=== PATIENT | female | born 1980 | race Caucasian/White ===

== ENCOUNTER 2019-02-02 19:24 | Emergency (ER) | payer OTHER ==
[~2019-02-02] VITALS: Ht 160 cm; Wt 50.8 kg
--- OUTSIDE RECORDS SUMMARY | 2019-02-02 19:27 | XMS REPORT ---
Author Author [facility] Address Unknown Phone Unavailable Care Team Providers Care Java Programmer Name Role Phone Unavailable Unavailable Payers Payer Name Policy Type Policy Number Effective Date Expiration Date Problems This patient has no known problems. Allergies, Adverse Reactions, Alerts Allergy Name Allergy Type Status Severity Reaction(s) Onset Date Inactive Date Treating Clinician Comments No Known Allergies DA Active U 2018-05-24 00:00:00 No Known Allergies DA Active U 2015-03-17 00:00:00 Medications This patient has no known medications. Results Test Description Test Time Test Comments Text Results Atomic Results Result Comments - CT HEAD/BRAIN W/O CONT 2018-05-24 14:05:00 Name: CARMINE CHOWDHURY [facility] : 1980 Age/S: 37 / F [address] [facility] Unit #: [id number] Loc: [place] [address] Phys: Agustin Garza MD Acct: [id number] Dis Date: Status: REG ER PHONE #: [phone] Exam Date: 05/24/2018 1348 FAX #: [phone] Reason: Headache EXAMS: CPT CODE: [id number] CT HEAD/BRAIN W/O CONT 38258 HISTORY: Headaches. COMPARISON: None available. CT brain without contrast: Automated exposure control. No acute intracranial bleeds or extra-axial collections and there is no acute territorial vascular infarction. The das-white matter differentiation is preserved. The sulci, gyri, ventricles and subarachnoid spaces and the basilar cisterns are normal for patient's age. No herniation or hydrocephalus or midline shift is noted. Fourth ventricle remains midline. Portions of the visualized paranasal sinuses demonstrated left maxillary polyp or retention cyst with mucosal thickening on the right side. No obvious bony calvarial defect is noted. IMPRESSION: No acute intracranial bleeds or extra-axial collections. No acute territorial vascular infarction. No herniation or hydrocephalus or midline shift. at 1405 Reported and signed by: Kenney Dalal M.D. CC: Agustin Garza MD Technologist:Librado Velarde RT(R),(MR),(CT) CTDI: DLP: Trnscb Date/Time: 05/24/2018 (2477) [email or web address] Orig Print D/T: S: 05/24/2018 (0249) CTDI: DLP: PAGE 1 Signed Report BASIC METABOLIC PANEL 2018-05-24 14:00:00 SODIUM (test code=NA) 139 mmol/L 136-145 POTASSIUM (test code=K) 3.8 mmol/L 3.5-5.1 CHLORIDE (test code=CL) 105.0 mmol/L 98-107 CARBON DIOXIDE (test code=CO2) 29.0 mmol/L 21-32 ANION GAP (test code=GAP) 8.8 10-20 GLUCOSE (test code=GLU) 98 mg/dL 74-106 BLOOD UREA NITROGEN (test code=BUN) 11 mg/dL 7-18 GLOMERULAR FILTRATION RATE (test code=GFR) > 60 mL/min >=60 Estimated GFR by using Modified MDRD formula.Chronic kidney disease is defined as either kidney damageor GFR <60 mL/min/1.73 m2 for >3 months. CREATININE (test code=CREAT) 0.60 mg/dL 0.55-1.02 Note change in reference range due to change in reagent. BUN/CREATININE RATIO (test code=BUN/CREA) 17.6 10-20 CALCIUM (test code=CA) 8.6 mg/dL 8.5-10.1 HCG SERUM [id number] 14:00:00* Test Item Value Reference Range Comments HCG SERUM QUAL (test code=HCGQL) NEGATIVE NEGATIVE This HCGQL test is NOT applicable for MALE patients.Check with nurse about probable order error.If Tumor Marker Test needed, nurse should order test "HCGTU"(Test #550.08753) BASIC METABOLIC [id number] 13:57:00* Test Item Value Reference Range Comments SODIUM (test code=NA) 139 mmol/L 136-145 POTASSIUM (test code=K) 3.8 mmol/L 3.5-5.1 CHLORIDE (test code=CL) 105.0 mmol/L 98-107 CARBON DIOXIDE (test code=CO2) mmol/L 21-32 ANION GAP (test code=GAP) 10-20 GLUCOSE (test code=GLU) mg/dL 74-106 BLOOD UREA NITROGEN (test code=BUN) mg/dL 7-18 GLOMERULAR FILTRATION RATE (test code=GFR) mL/min >=60 CREATININE (test code=CREAT) mg/dL 0.55-1.02 BUN/CREATININE RATIO (test code=BUN/CREA) 10-20 CALCIUM (test code=CA) 8.6 mg/dL 8.5-10.1 HCG SERUM [id number] 13:57:00* Test Item Value Reference Range Comments [facility] [place] (test code=HCGQL) NEGATIVE BASIC METABOLIC [id number] 13:57:00* Test Item Value Reference Range Comments SODIUM (test code=NA) 139 mmol/L 136-145 POTASSIUM (test code=K) 3.8 mmol/L 3.5-5.1 CHLORIDE (test code=CL) 105.0 mmol/L 98-107 CARBON DIOXIDE (test code=CO2) mmol/L 21-32 ANION GAP (test code=GAP) 10-20 GLUCOSE (test code=GLU) mg/dL 74-106 BLOOD UREA NITROGEN (test code=BUN) mg/dL 7-18 GLOMERULAR FILTRATION RATE (test code=GFR) mL/min >=60 CREATININE (test code=CREAT) mg/dL 0.55-1.02 BUN/CREATININE RATIO (test code=BUN/CREA) 10-20 CALCIUM (test code=CA) 8.6 mg/dL 8.5-10.1 HCG SERUM [id number] 13:57:00* Test Item Value Reference Range Comments HCG SERUM QUAL (test code=HCGQL) NEGATIVE NEGATIVE This HCGQL test is NOT applicable for MALE patients.Check with nurse about probable order error.If Tumor Marker Test needed, nurse should order test "HCGTU"(Test #550.52974) BASIC METABOLIC [id number] 13:56:00* Test Item Value Reference Range Comments SODIUM (test code=NA) 139 mmol/L 136-145 POTASSIUM (test code=K) 3.8 mmol/L 3.5-5.1 CHLORIDE (test code=CL) 105.0 mmol/L 98-107 CARBON DIOXIDE (test code=CO2) mmol/L 21-32 ANION GAP (test code=GAP) 10-20 GLUCOSE (test code=GLU) mg/dL 74-106 BLOOD UREA NITROGEN (test code=BUN) mg/dL 7-18 GLOMERULAR FILTRATION RATE (test code=GFR) mL/min >=60 CREATININE (test code=CREAT) mg/dL 0.55-1.02 BUN/CREATININE RATIO (test code=BUN/CREA) 10-20 CALCIUM (test code=CA) mg/dL 8.5-10.1 HCG SERUM [id number] 13:56:00* Test Item Value Reference Range Comments HCG SERUM QUAL (test code=HCGQL) NEGATIVE CBC W/AUTO [id number] 13:55:00* Test Item Value Reference Range Comments WHITE BLOOD CELL (test code=WBC) 7.4 K/mm3 4.5-12.5 RED BLOOD CELL (test code=RBC) 3.81 mill/mm3 3.7-5.2 HEMOGLOBIN (test code=HGB) 11.4 gram/dL 11.5-15.5 HEMATOCRIT (test code=HCT) 35.0 % 36.0-46.0 MEAN CELL VOLUME (test code=MCV) 91.9 fL 80-98 MEAN CELL HGB (test code=MCH) 29.9 picogram 27.0-33.0 MEAN CELL HGB CONCETRATION (test code=MCHC) 32.6 gram/dL 33.0-36.0 RED CELL DISTRIBUTION WIDTH (test code=RDW) 12.1 % 11.6-16.2 RED CELL DISTRIBUTION WIDTH SD (test code=RDW-SD) 40.7 fL 37.0-51.0 PLATELET COUNT (test code=PLT) 299 K/mm3 150-450 MEAN PLATELET VOLUME (test code=MPV) 9.1 fL 6.7-11.0 NEUTROPHIL % (test code=NT%) 66.1 % 39.0-69.0 IMMATURE GRANULOCYTE % (test code=IG%) 0.7 % 0.0-5.0 LYMPHOCYTE % (test code=LY%) 22.7 % 25.0-55.0 MONOCYTE % (test code=MO%) 7.0 % 0.0-10.0 EOSINOPHIL % (test code=EO%) 3.0 % 0.0-5.0 BASOPHIL % (test code=BA%) 0.5 % 0.0-1.0 NUCLEATED RBC % (test code=NRBC%) 0.0 % 0-0 NEUTROPHIL # (test code=NT#) 4.92 K/mm3 1.8-7.7 IMMATURE GRANULOCYTE # (test code=IG#) 0.05 x10 3/uL 0-0.03 LYMPHOCYTE # (test code=LY#) 1.69 K/mm3 1.0-5.0 MONOCYTE # (test code=MO#) 0.52 K/mm3 0-0.8 EOSINOPHIL # (test code=EO#) 0.22 K/mm3 0.0-0.5 BASOPHIL # (test code=BA#) 0.04 K/mm3 0.0-0.2 NUCLEATED RBC # (test code=NRBC#) 0.00 K/mm3 0.0-0.1
--- NOTE | 2019-02-02 20:30 | Diagnostic Imaging Report ---
Right complete knee. CPT CODE: 68797. INDICATION: Twisting injury COMPARISON: None FINDINGS: No evidence of acute fracture or dislocation. The visualized joint spaces of the knee are preserved. Large suprapatellar effusion. IMPRESSION: Large suprapatellar effusion. No osseous injury. Signed by: Dr. Angelito Brooke MD on 02/02/2019 8:27 PM
== END 2019-02-02 21:19 | disposition home or self-care (01) ==
LOC: ER 19:24
DX: M25.561 Pain in right knee (principal); M25.461 Effusion, right knee; X50.1XXA Overexertion from prolonged static or awkward postures, initial encounter; Y92.008 Other place in unspecified non-institutional (private) residence as the place of occurrence of the external cause; J45.909 Unspecified asthma, uncomplicated; M06.9 Rheumatoid arthritis, unspecified
CPT/HCPCS: 99283

== ENCOUNTER 2019-02-18 14:42 | Emergency (ER) | payer OTHER ==
[~2019-02-18] VITALS: Ht 160 cm; Wt 50.8 kg
== END 2019-02-18 16:00 | disposition left against medical advice (07) ==
LOC: ER 14:42
DX: M79.672 Pain in left foot (principal)

== ENCOUNTER 2021-09-14 21:44 | Emergency (ER) | payer OTHER ==
[~2021-09-14] VITALS: Ht 165.1 cm; Wt 54.4 kg
[2021-09-14 22:29] LABS: CLARITY,URINE CLOUDY (CLEAR); COLOR,URINE YELLOW (YELLOW); KETONES,URINE NEGATIVE (NEGATIVE); LEUKOCYTE ESTERASE ,URINE NEGATIVE (NEGATIVE); NITRITE,URINE NEGATIVE (NEGATIVE); PROTEIN,URINE DIPSTICK NEGATIVE (NEGATIVE); URINE UROBILINOGEN 0.2 mg/dL (0.2 - 1)
[2021-09-14 22:33] LABS: BACTERIA,URINE MODERATE /HPF; EPITHELIAL CELLS,URINE MODERATE /LPF; MUCUS,URINE MANY (RARE); RBC,URINE 0-5 /HPF (0-5); WBC,URINE (MAN) 0-5 /HPF (0-5)
== END 2021-09-14 22:45 | disposition home or self-care (01) ==
LOC: ER 22:21
DX: N76.0 Acute vaginitis (principal); J45.909 Unspecified asthma, uncomplicated; M32.9 Systemic lupus erythematosus, unspecified; M06.9 Rheumatoid arthritis, unspecified
CPT/HCPCS: 81001; 81025; 99282

== ENCOUNTER 2021-09-18 01:51 | Emergency (ER) | payer OTHER ==
[~2021-09-18] VITALS: Ht 165.1 cm; Wt 54.4 kg
[2021-09-18] MEDS ORDERED: ONDANSETRON HCL INJ 2MG/ML 2ML 2 MG/ML VIAL IV STA (02:12)
[2021-09-18] MEDS ORDERED: SODIUM CHLORIDE FLUSH 10 ML SYR IV PRN (02:15)
[2021-09-18] MEDS ORDERED: ASPIRIN 325 MG TAB PO ONE (02:15)
[2021-09-18] MEDS ORDERED: SODIUM CHLORIDE 0.9% 1000ML 1,000 ML IV ONE (02:15)
[2021-09-18 02:20] LABS: BASOPHILS % 0.1 % (0.0-1.0); HEMATOCRIT 35.4 % (34.2-44.1); HEMOGLOBIN 11.7 g/dL (12.0-16.0); LYMPHOCYTES # (AUTO) 2.7 (1.0-3.2); MEAN CORPUSCULAR HEMOGLOBIN 27.5 pg (28-32); MEAN CORPUSCULAR HGB CONC 33.1 g/dL (31-35); MEAN CORPUSCULAR VOLUME 83.3 fL (81-99); MONOCYTES # (AUTO) 1.5 (0.2-0.8); NEUTROPHILS # (AUTO) 13.7 (2.1-6.9); NEUTROPHILS % 75.2 % (38.7-80.0); PLATELET COUNT 473 x10e3/uL (140-360); RED BLOOD COUNT 4.25 x10e6/uL (3.6-5.1); RED CELL DISTRIBUTION WIDTH 13.5 % (11.7-14.4)
[2021-09-18] MEDS ORDERED: KETOROLAC TROMETHAMINE 30 MG/ML VIAL IV STA (02:20)
[2021-09-18 02:24] LABS: INR 0.95; PROTHROMBIN TIME 13.5 seconds (11.9-14.5)
[2021-09-18 02:25] LABS: PARTIAL THROMBOPLASTIN TIME 27.2 seconds (23.8-35.5)
[2021-09-18 02:34] LABS: ALANINE AMINOTRANSFERASE 15 IU/L (0-55); ALBUMIN 3.9 g/dL (3.5-5.0); ALBUMIN/GLOBULIN RATIO 1.1 (0.8-2.0); ALKALINE PHOSPHATASE 92 IU/L (40-150); ANION GAP 16.1 mmol/L (8-16); BLOOD UREA NITROGEN 11 mg/dL (7-26); BUN/CREATININE RATIO 13 (6-25); CALCIUM 9.5 mg/dL (8.4-10.2); CARBON DIOXIDE 30 mmol/L (22-29); CHLORIDE 97 mmol/L (98-107); CREATININE, SERUM 0.84 mg/dL (0.57-1.11); GLUCOSE 100 mg/dL (74-118); POTASSIUM 3.1 mmol/L (3.5-5.1); SODIUM 140 mmol/L (136-145)
[2021-09-18] MEDS ORDERED: KETOROLAC TROMETHAMINE 30 MG/ML VIAL ONE (02:40)
[2021-09-18 02:44] LABS: CLARITY,URINE TURBID (CLEAR); COLOR,URINE BROWN (YELLOW); KETONES,URINE TRACE (NEGATIVE); LEUKOCYTE ESTERASE ,URINE TRACE (NEGATIVE); NITRITE,URINE NEGATIVE (NEGATIVE); PROTEIN,URINE DIPSTICK 2+ (NEGATIVE); URINE UROBILINOGEN 0.2 mg/dL (0.2 - 1)
[2021-09-18 02:45] LABS: AMPHETAMINES SCREEN,URINE POSITIVE (NEGATIVE); BENZODIAZEPINES SCREEN,URINE NEGATIVE (NEGATIVE); PHENCYCLIDINE SCREEN,URINE NEGATIVE (NEGATIVE)
[2021-09-18 02:50] LABS: AMORPHOUS SEDIMENT,URINE FEW (FEW); BACTERIA,URINE FEW /HPF; EPITHELIAL CELLS,URINE RARE /LPF; RBC,URINE >50 /HPF (0-5)
[2021-09-18] MEDS ORDERED: FAMOTIDINE 20 MG/2 ML VIAL IV STA (03:17)
[2021-09-18] MEDS ORDERED: METOCLOPRAMIDE HCL 10 MG/2ML VIAL IV ONE (03:30)
[2021-09-18] MEDS ORDERED: ONDANSETRON ODT4 MG PO (04:02)
[2021-09-18 04:11] VITALS: BP 125/93
== END 2021-09-18 04:10 | disposition home or self-care (01) ==
LOC: ER 02:12
DX: R07.89 Other chest pain (principal); R11.2 Nausea with vomiting, unspecified; N39.0 Urinary tract infection, site not specified; F15.10 Other stimulant abuse, uncomplicated; M54.2 Cervicalgia; M32.9 Systemic lupus erythematosus, unspecified; M06.9 Rheumatoid arthritis, unspecified; J45.909 Unspecified asthma, uncomplicated; F90.9 Attention-deficit hyperactivity disorder, unspecified type; Z20.822 Contact with and (suspected) exposure to COVID-19
CPT/HCPCS: 36415; 71045; 80053; 80307; 81001; 83518; 84484; 84702; 85025; 85610; 85730; 87070; 93005; 94760; 99284; J1885; J2405; J2765; J7030; U0002